=== PATIENT | female | born 1950 | race Caucasian/White ===

== ENCOUNTER 2023-12-24 05:44 | Day surgery (SDC) | payer OTHER, BC ==
[2023-12-24 06:28] LABS: Absolute Neutrophil Ct (ANC) 2.78 x10^3/uL (1.56-6.13); BASOPHIL % 0.9 % (0.1-1.2); Basophil (Absolute #) 0.04 x10^3/uL (0.01-0.08); Eosinophil % 1.5 % (0.7-5.8); Eosinophil (Absolute #) 0.07 x10^3/uL (0.04-0.36); Hematocrit 35.2 % (34.1-44.9); Hemoglobin 11.8 g/dL (11.2-15.7); IMMATURE GRAN # 0.02 x10^3u/L (0.001-0.031); IMMATURE GRAN % 0.4 % (0.001-0.429); Lymphocyte (Absolute #) 1.31 x10^3/uL (1.18-3.74); Lymphocytes % 28.6 % (19.3-51.7); Mean Cell Volume 94.1 fL (79.4-94.8); Mean Corpuscular Hemoglobin 31.6 pg (25.6-32.2); Mean Corpuscular Hgb Concent. 33.5 g/dL (32.2-35.5); Mean Platelet Volume 10.4 fL (9.4-12.3); Monocyte (Absolute #) 0.36 x10^3/uL (0.24-0.86); Monocytes % 7.9 % (4.7-12.5); Neutrophil % 60.7 % (34.0-71.1); Platelet Count 172 x10^3/uL (182-369); Red Blood Count 3.74 x10^6/uL (3.93-5.22); White Blood Count 4.6 x10^3/uL (3.98-10.04)
[2023-12-24 06:35] VITALS: RESP 16
[2023-12-24] MEDS: Lactated Ringers 1,000 ML IV SCH (06:40)
[2023-12-24] MEDS ORDERED: DIPRIVAN 200 MG/20 ML IV ONE ×2 (07:07→07:20)
[2023-12-24 08:06] VITALS: BP 138/62; PULSE 52; TEMP 98.4; O2SAT 98
--- NOTE | 2023-12-27 09:23 | OP ---
SURGERY DATE/TIME: 12/24/2023 [id number] PREOPERATIVE DIAGNOSIS: Screening exam. POSTOPERATIVE DIAGNOSIS: Small polyp in the transverse colon. PROCEDURE: Colonoscopy with cold forceps biopsy and polypectomy. SURGEON: Bunny Mendez MD ANESTHESIA: Medication given by the Anesthesia Department. HISTORY: The patient is a 73-year-old white female presenting now for screening colonoscopy. She was appraised of the risks of the procedure including the risk of perforation, phlebitis, untoward reaction to medication, bleeding and missed lesions. The patient verbalized her understanding and desired to have the procedure performed. DESCRIPTION OF PROCEDURE AND FINDINGS: Patient was given medication by the Anesthesia Department. She had continuous pulse oximetry, ECG monitoring, and intermittent blood pressure monitoring during the examination. She was placed in the left lateral decubitus position. Digital rectal examination was performed and revealed normal anal sphincter tone and no masses. The flexible Olympus pediatric colonoscope was used to intubate the rectum. A view of the colon was developed sequentially to the cecum. Upon insertion and withdrawal, including retroflexion in the rectum, there was noted 1 small polyp measuring approximately 1 cm in size. This was sessile and removed entirely with 3 passes of the cold forceps instrument. No mucosal lesions were encountered. The scope was removed from the patient who tolerated the procedure well and was sent back to outpatient recovery in good condition. The prep was noted to be good.
== END 2023-12-24 08:15 | disposition home or self-care (01) ==
LOC: SDC 05:44
PROVIDERS: ATTEND Family Medicine
DX: Z12.11 Encounter for screening for malignant neoplasm of colon (principal); D12.3 Benign neoplasm of transverse colon; E11.9 Type 2 diabetes mellitus without complications
CPT/HCPCS: 36415; 82947; 85025; 93005; 99100; J2704